=== PATIENT | female | born 2000 | race Caucasian/White ===

== ENCOUNTER 2021-03-22 19:54 | Emergency (ER) | payer OTHER, SELFPAY ==
--- NOTE | ~2021-03-22 | XR_ITS ---
EXAMINATION: XR ANKLE, RIGHT CLINICAL INFORMATION: Swollen ankle COMPARISON: None TECHNIQUE: AP, lateral, and mortise views of the right ankle. FINDINGS: Visualized portion of the distal tibia and fibula demonstrate no fracture. Ankle mortise is well-maintained. No focal soft tissue swelling of the ankle. No gross ankle joint effusion. XR/XR ankle RT min 3V IMPRESSION: Unremarkable radiographs of the right ankle.
[2021-03-22 20:29] VITALS: BP 105/68; PULSE 85; RESP 15; TEMP 36; O2SAT 98; BMI 28.1
--- NOTE | 2021-03-22 22:13 | ED.LOWEXIN ---
HPI - Extremity Injury (Lower) General Chief Complaint: Extremity Injury, Lower Stated Complaint: Fall Source: patient Mode of arrival: ambulatory Limitations: no limitations History of Present Illness HPI Narrative: 20-year-old female presents with right ankle pain and swelling after falling into a hole. Patient states that she cannot bear weight. She does not describe any other injuries from this fall. MD complaint: ankle injury and foot injury Onset (ago): hour(s) (6:30 p.m.) Type of Injury: unknown Place: street/outdoors Severity: moderate Severity scale (1-10): 7 Relieving factors: nothing Exacerbating factors: weight bearing, movement and palpation Context: fall Associated symptoms: swelling and unable to bear weight Other symptoms: none Treatments prior to arrival: cold therapy Related Data Allergies Allergy/AdvReac Type Severity Reaction Status Date / Time No Known Allergies Allergy Verified 03/22/21 22:14 Review of Systems Review of Systems: Constitutional: No Fever, No Chills ENT/Mouth: No Ear Pain, No Hoarseness, No sore throat Eyes: No Eye Pain, No Swelling, No Redness, No Foreign Body Cardiovascular: No Chest Pain, No SOB Respiratory: No Cough, No Dyspnea Gastrointestinal: No Nausea, No Vomiting, No Diarrhea, No abdominal Pain Genitourinary: No Dysuria, No Hematuria Musculoskeletal: positive right ankle swelling and pain, No Myalgias, No Joint Swelling Skin: No Skin lacerations, No rash Neuro: No Weakness, No Numbness, No Paresthesias, No Loss of Consciousness, No Dizziness, No Headache Psych: No Anxiety/Panic, No Depression Heme/Lymph: no easy bruising, no Lymphadenopathy Endocrine: No Polyuria, No Polydipsia Yes all other systems are reviewed and are negative [facility] Past Medical History Attestation statement: The following information was validated with the patient. Source: old records reviewed Medical History No known health problems Surgical History No history of previous surgery Social History Social History Advance Directives: No Advance Directives Information Provided: No Patient : No Physical Exam Vital Signs: Vital Signs: Last Vital Signs Temp 96.8 F 03/22/21 20:29 Pulse 85 03/22/21 20:29 Resp 15 03/22/21 20:29 BP 105/68 03/22/21 20:29 Pulse Ox 98 03/22/21 20:29 Body Mass Index 28.1 Appearance: Alert. Oriented X3. No acute distress. Eyes: Pupils equal, round and reactive to light. ENT: Pharynx normal. Neck: Normal inspection. Neck supple. CVS: Normal heart rate and rhythm. Pulses normal. Respiratory: No respiratory distress. Breath sounds normal. Abdomen: Soft and nontender. Skin: Skin warm and dry. Normal skin color. Normal skin turgor. Extremities: Tenderness noted to bilateral malleolar processes to the right ankle, swelling noted to the right lateral malleolar process, no bruising noted. Decreased flexion extension internal and external rotation. Brisk capillary refill in equal pedal pulses bilaterally. No tenderness to patella or knee, knee has full range of motion, pelvis is stable. No tenderness to pelvis palpation Neuro: No motor deficit. No sensory deficit. Cranial nerves 2-12 intact. Course Course Course Narrative: 20-year-old female presents with suspected ankle sprain after falling into a shallow hole. X-rays are negative for fracture or dislocation. Patient's physical presentation highly suggestive of grade [address] patient in Mike wrap, air cast, and crutches. Patient presented with her own crutches. Will instruct her with rest, ice, elevation and compression. Patient was advised to alternate Tylenol Motrin for pain management. Patient verbalized understanding of and agrees to plan of care discharge home. MDM - Extremity Injury (Lower) Differential Diagnosis Differential diagnosis: Likely ankle sprain and strain and ankle fracture Medical Records Attestation: I reviewed the patient's medical records. Imaging Data Ankle x-ray: Attestation: I personally reviewed and interpreted this imaging study as follows: Radiologist's impression: EXAMINATION: XR ANKLE, RIGHT CLINICAL INFORMATION: Swollen ankle? COMPARISON: None? TECHNIQUE: AP, lateral, and mortise views of the right ankle. FINDINGS: Visualized portion of the distal tibia and fibula demonstrate no fracture. Ankle mortise is well-maintained. No focal soft tissue swelling of the ankle. No gross ankle joint effusion.? XR/XR ankle RT min 3V IMPRESSION: Unremarkable radiographs of the right ankle. Discharge Plan Discharge Clinical Impression: Ankle sprain and strain Patient Disposition: Home, Self-Care Instructions: Ankle Sprain (ED), Crutch Instructions (ED), Ankle Stirrup Splint (ED), R.I.C.E. Treatment (ED) Additional Instructions: You were evaluated for right ankle pain and swelling. X-rays are negative for acute findings requiring emergent intervention. There are no fractures or dislocations. Your injuries are consistent with a grade 2 ankle sprain. Please use Mike wrap and air cast as needed. Use crutches to help with ambulation. Rest, ice and elevate to help reduce pain and swelling. Take Motrin and Tylenol as needed for pain management. Please write down what time you take these medications to prevent accidental overdose. Follow the instructions on the label for [id number] medications. If pain persists after 1 week, please follow-up with your primary care physician for follow-up. Thank you for choosing this emergency department for evaluation. Please follow-up with primary care physician as needed. Return to the emergency department for any new, concerning, or worsening symptoms. Stand Alone Forms: Work/School Release Interventions: ED Discharge Assessment Last Done: 03/22/21 23:33 Discharge Date/Time: 03/22/21 23:36
== END 2021-03-22 23:36 | disposition home or self-care (01) ==
PROVIDERS: Emergency Provider Internal Medicine
DX: S93.401A Sprain of unspecified ligament of right ankle, initial encounter (principal); M25.571 Pain in right ankle and joints of right foot; W01.0XXA Fall on same level from slipping, tripping and stumbling without subsequent striking against object, initial encounter; Y93.9 Activity, unspecified; Y92.9 Unspecified place or not applicable; Y99.9 Unspecified external cause status
CPT/HCPCS: 29515; 73610; 99283; 99284